=== PATIENT | female | born 1975 ===

== ENCOUNTER 2018-05-13 19:53 | Emergency (ER) | payer BC ==
[2018-05-13] MEDS ORDERED: Sodium Chloride 0.9% 1,000 ML IV STA (20:36)
[2018-05-13] MEDS ORDERED: Albuterol-Ipratrop 3 mg / 0.5 (3 ml) UD IH STA (20:36)
--- NOTE | 2018-05-13 20:39 | ED PDOC ---
HPI: CCC, URI, Sore Throat Time Seen by Provider: 05/13/18 20:21 Chief Complaint (Nursing): Chest Pain Chief Complaint (Provider): cough History Per: Patient History/Exam Limitations: no limitations Onset/Duration Of Symptoms: Days (5) Current Symptoms Are (Timing): Still Present Associated Symptoms: Cough Additional Complaint(s): 42 y/o female brought in by EMS for evaluation of nonproductive cough x 5 days. Associated chest tightness since yesterday, worse with coughing. Patient states her son is sick with similar symptoms. Patient states she took a dose of an old Promethazine DM and reports feeling lightheaded with dry mouth shortl after, which prompted ED visit. Denies fever, nasal congestion/discharge, throat pain, shortness of breath, palpitations, vomiting, abdominal pain, changes in bowel movements, urinary symptoms, recent travel. Past Medical History Reviewed: Historical Data, Nursing Documentation, Vital Signs Vital Signs: Last Vital Signs Temp 98.1 F 05/13/18 19:57 Pulse 80 05/13/18 19:57 Resp 18 05/13/18 19:57 BP 152/106 H 05/13/18 19:57 Pulse Ox 97 05/13/18 19:57 - Surgical History Surgical History: No Surg Hx - Family History Family History: States: No Known Family Hx - Home Medications Home Medications: Ambulatory Orders Medication Instructions Recorded Albuterol HFA [Ventolin HFA 90 1 puff IH Q4 PRN #1 inh 05/13/18 mcg/actuation (8 g)] Benzonatate [Tessalon Perle] 100 mg PO TID PRN #21 capsule 05/13/18 - Allergies Allergies/Adverse Reactions: Allergies Allergy/AdvReac Type Severity Reaction Status Date / Time No Known Allergies Allergy Verified 05/13/18 20:34 Review of Systems ROS Statement: Except As Marked, All Systems Reviewed And Found Negative Cardiovascular: Positive for: Chest Pain Respiratory: Positive for: Cough Physical Exam - Reviewed Nursing Documentation Reviewed: Yes Vital Signs Reviewed: Yes - Physical Exam Appears: Positive for: Well, Non-toxic, No Acute Distress Head Exam: Positive for: ATRAUMATIC, NORMAL INSPECTION, NORMOCEPHALIC Skin: Positive for: Normal Color Eye Exam: Positive for: Normal appearance ENT: Positive for: Normal ENT Inspection Cardiovascular/Chest: Positive for: Regular Rate, Rhythm Respiratory: Positive for: Normal Breath Sounds Gastrointestinal/Abdominal: Positive for: Normal Exam Back: Positive for: Normal Inspection Extremity: Positive for: Normal ROM Neurologic/Psych: Positive for: Alert, Oriented (x3) - Laboratory Results Result Diagrams: 05/13/18 20:58 05/13/18 20:58 - ECG ECG: Positive for: Viewed By Me (reviewed by ED attending) ECG Rhythm: Positive for: Sinus Rhythm O2 Sat by Pulse Oximetry: 97 - Radiology X-Ray: Viewed By Me X-Ray Interpretation: No Acute Disease - Progress ED Course And Treament: -cbc -cmp -tropinin -ekg -cxr -duoneb -IV NS bolus On re-eval, patient states she is feeling better Patient educated on findings, discharged with rx Albuterol HFA, Tessalon Perles Advised fluids, rest Follow up with primary doctor within 2-3 days Return precautions given Disposition - Clinical Impression Clinical Impression: Atypical chest pain, Bronchitis - Patient ED Disposition Is Patient to be Admitted: No Counseled Patient/Family Regarding: Studies Performed, Diagnosis, Need For Followup, Rx Given - Disposition Disposition: Routine/Home Disposition Time: 22:18 Condition: IMPROVED Prescriptions: Albuterol HFA [Ventolin HFA 90 mcg/actuation (8 g)] 1 puff IH Q4 PRN #1 inh PRN Reason: Wheezing Benzonatate [Tessalon Perle] 100 mg PO TID PRN #21 capsule PRN Reason: Cough Instructions: Acute Bronchitis, Chest Pain That Is Not Caused by the Heart (DC) Forms: [employer] ([place]), JANNY ED School/Work Excuse
[2018-05-13] MEDS ORDERED: Albuterol-Ipratrop 3 mg / 0.5 (3 ml) UD ONE (20:44)
[2018-05-13 21:02] LABS: BASO # 0.1 K/uL (0.0-0.2); BASO % 0.8 % (0.0-2.0); EOS # 0.1 K/uL (0.0-0.7); EOS % 1.5 % (0.0-4.0); HEMOGLOBIN 14.7 g/dL (12.0-16.0); LYMPH # 1.6 K/uL (1.0-4.3); LYMPH % 19.5 % (20.0-40.0); MEAN CELL VOLUME 87.2 fl (81.0-99.0); MEAN CORPUSCULAR HEMOGLOBIN 30.3 pg (27.0-31.0); MEAN CORPUSCULAR HGB CONC 34.8 g/dL (33.0-37.0); MEAN PLATELET VOLUME 9.8 fl (7.2-11.7); MONO # 0.7 K/uL (0.0-0.8); MONO % 8.9 % (0.0-10.0); NEUT # 5.6 K/uL (1.8-7.0); NEUT % 69.3 % (50.0-75.0); NRBC % 0.1 % (0.0-0.0); RBC 4.86 Mil/uL (3.80-5.20); WHITE BLOOD COUNT 8.1 K/uL (4.8-10.8)
[2018-05-13 21:13] LABS: ALB/GLOB RATIO 1.2 (1.0-2.1); ALBUMIN 4.2 g/dL (3.5-5.0); BLOOD UREA NITROGEN 12 mg/dl (7-17); CALCIUM 9.4 mg/dL (8.4-10.2); GFR NON-AFRICAN AMERICAN > 60
[2018-05-13 21:32] LABS: ALT/SGPT 49 U/L (9-52); AST/SGOT 42 U/L (14-36)
[2018-05-13 22:41] VITALS: BP 107/68; PULSE 63; RESP 14; TEMP 98.2; O2SAT 100
--- NOTE | 2018-05-14 06:05 | CARD ---
APPROVED REPORT Date of service: 05/13/2018 EKG Measurement Heart [id number] <Conclusion> Normal sinus rhythm Normal ECG
--- NOTE | 2018-05-14 08:43 | RAD ---
Date of service: 05/13/2018 HISTORY: cough COMPARISON: No prior. TECHNIQUE: Chest PA and lateral FINDINGS: LUNGS: No active pulmonary disease. PLEURA: No significant pleural effusion identified. No pneumothorax apparent. CARDIOVASCULAR: There is absence of aortic atherosclerotic calcification on x-ray. Normal cardiac size. No pulmonary vascular congestion. OSSEOUS STRUCTURES: No significant abnormalities. VISUALIZED UPPER ABDOMEN: Normal. OTHER FINDINGS: None. IMPRESSION: No active disease. Specifically no pulmonary infiltrates.
== END 2018-05-13 22:40 | disposition home or self-care (01) ==
LOC: H.ER 19:53
DX: R07.89 Other chest pain (principal); J40 Bronchitis, not specified as acute or chronic